=== PATIENT | male | born 1940 | race Caucasian/White ===

== ENCOUNTER 2019-08-16 06:26 | Day surgery (SDC) | payer MEDICARE, OTHER ==
[2019-08-16] MEDS ORDERED: Bupivacaine 0.5% 50 ML MDV ONE (06:37)
[2019-08-16] MEDS ORDERED: Lidocaine 1% with EPINEPHrine 1:100,000 50 ML MDV ONE (06:37)
[2019-08-16] MEDS ORDERED: ceFAZolin 2 GM in Premix Bag 1 BAG IV ONE (07:00)
[2019-08-16] MEDS ORDERED: metroNIDAZOLE/Normal Saline 500 MG in Premix Bag 1 BAG IV ONE (07:00)
[2019-08-16] MEDS ORDERED: Sodium Chloride 0.9% 1,000 ML IV SCH (07:00)
[2019-08-16] MEDS ORDERED: fentaNYL 100 MCG/2 ML SDV ONE (07:14)
[2019-08-16] MEDS ORDERED: Propofol 200 MG/20 ML SDV ONE ×2 (07:14→07:59)
[2019-08-16] MEDS ORDERED: Midazolam 1 MG/ML 2 ML SDV ONE (07:14)
[2019-08-16] MEDS ORDERED: Acetaminophen/oxyCODONE 325-5 MG Tab PO ONE (09:42)
--- NOTE | 2019-08-16 11:26 | OR ---
DATE OF PROCEDURE: 08/16/2019 SURGEON: Sampson Barajas MD PROCEDURE: Open inguinal hernia, right. COMPLICATIONS: None. ANALYSIS OR RESEARCH SAFETY INSPECTOR: None. ANESTHETIC: MAC/local. PREOPERATIVE DIAGNOSIS: Incarcerated non-strangulated inguinal hernia. POSTOPERATIVE DIAGNOSIS: Incarcerated non-strangulated inguinal hernia. RISKS: Risks, benefits, alternatives, and limitations including, but not limited to, infection, bleeding, and perforation, injury to abdominal structures were explained to the patient, and they wished to proceed. PROCEDURE IN DETAIL: The patient was placed in supine position, and on the right side, a curvilinear incision was made in a standard fashion, approximately 5 cm in size. This was then carried down with electrocautery to the external oblique aponeurosis. This was opened with the back of a 15 blade and subsequently Metzenbaum scissors. The cord structures were then freely dissected, surrounded with a [place] drain. The patient was noted to have an indirect inguinal hernia. This was freely dissected and the sac was then deflected back into the abdomen. There was also a cord lipoma associated with this that was also deflected. The cord structures were repeatedly re-verified and no abnormalities were noted. These were also protected with a [place] drain. An extra-large plug and patch system was then sutured into place without difficulty. This was approximately every 1 cm in interrupted and running sutures. The ilioinguinal nerve was identified during this process and was deflected away from any sutures. This was then irrigated. The external oblique aponeurosis was closed with 3-0 Vicryl, the subcutaneous tissues were closed with 3-0 Vicryl, skin was closed with 4-0 Vicryl and Dermabond was applied. The patient tolerated the procedure well. Sampson Barajas MD /[id number]
--- NOTE | 2019-08-16 11:32 | OR ---
DATE OF PROCEDURE: 08/16/2019 SURGEON: Sampson Barajas MD PROCEDURE: Bilateral transversus abdominis plane block. COMPLICATIONS: None. RESIDENTIAL TEAM LEADER: None. RISKS: Risks, benefits, alternatives, and limitations including, but not limited to, infection, bleeding, and injury to abdominal structures were explained to the patient, who wished to proceed. PROCEDURE IN DETAIL: The patient was placed in the supine position. The transversus plane on the right side was identified. This was injected with 80% of the solution, the other side was then injected under direct visualization. No evidence of injury or abnormalities noted. The patient tolerated the procedure well. Sampson Barajas MD /[id number]
== END 2019-08-16 10:53 | disposition home or self-care (01) ==
LOC: JP.SDS 06:26
PROVIDERS: ATTEND Surgery
DX: K40.30 Unilateral inguinal hernia, with obstruction, without gangrene, not specified as recurrent (principal); E78.5 Hyperlipidemia, unspecified; N18.3 Chronic kidney disease, stage 3 (moderate); D17.6 Benign lipomatous neoplasm of spermatic cord; K62.7 Radiation proctitis; Z79.899 Other long term (current) drug therapy; Z85.46 Personal history of malignant neoplasm of prostate; Z90.79 Acquired absence of other genital organ(s); Z92.3 Personal history of irradiation; Z87.19 Personal history of other diseases of the digestive system; Z87.891 Personal history of nicotine dependence; Z98.890 Other specified postprocedural states
CPT/HCPCS: A9270-GY; C1781; J0171; J0690; J1100; J2250; J2704; J2795; J3010; J3490; J7030; J7050

== ENCOUNTER 2019-10-30 06:42 | Day surgery (SDC) | payer MEDICARE, OTHER ==
[2019-10-30] MEDS ORDERED: Sodium Chloride 0.9% 1,000 ML IV SCH (07:15)
[2019-10-30] MEDS ORDERED: fentaNYL 100 MCG/2 ML SDV ONE (07:36)
[2019-10-30] MEDS ORDERED: Propofol 200 MG/20 ML SDV ONE (07:36)
[2019-10-30] MEDS ORDERED: Midazolam 1 MG/ML 2 ML SDV ONE (07:36)
--- NOTE | 2019-10-30 09:58 | OR ---
DATE OF PROCEDURE: 10/30/2019 SURGEON: Sampson Barajas MD PROCEDURE: Colonoscopy. FINDINGS: 1. Poor colon prep. 2. Diverticulosis, extensive, mostly concentrated in sigmoid colon. ANESTHESIA: MAC. PREOPERATIVE DIAGNOSIS: Screening colonoscopy. POSTOPERATIVE DIAGNOSIS: Screening colonoscopy. RISKS: Risks, benefits, alternatives, and limitations including, but not limited to, infection, bleeding, and perforation along with false positives and false negatives were explained to the patient and they wished to proceed. PROCEDURE IN DETAIL: The patient was placed in left lateral decubitus position. A digital rectal exam was performed without abnormality. Scope was introduced and advanced atraumatically to the ileocecal valve. A photo was taken of this. Scope was brought back to the ascending, transverse, descending colon, and retroflexed. No old or new blood. No masses. No polyps. The scope was brought back to the ascending, transverse, descending colon, and retroflexed. The diverticulosis was described as extensive with most densely concentrated in the sigmoid colon. No polyps. No masses. No old or new blood. No abnormalities on retroflexion. The patient tolerated the procedure well. Sampson Barajas MD /[id number]
== END 2019-10-30 09:35 | disposition home or self-care (01) ==
LOC: JP.SDS 06:42
PROVIDERS: ATTEND Surgery
DX: Z12.11 Encounter for screening for malignant neoplasm of colon (principal); K57.30 Diverticulosis of large intestine without perforation or abscess without bleeding; N18.9 Chronic kidney disease, unspecified
CPT/HCPCS: G0121; J2250; J2704; J3010; J7030

== ENCOUNTER 2021-01-22 06:45 | Day surgery (SDC) | payer MEDICARE, OTHER ==
[2021-01-22] MEDS ORDERED: fentaNYL 100 MCG/2 ML SDV ONE (07:13)
[2021-01-22] MEDS ORDERED: Propofol 200 MG/20 ML SDV ONE ×2 (07:13→07:56)
[2021-01-22] MEDS ORDERED: Sodium Chloride 0.9% 1,000 ML IV SCH (07:30)
--- NOTE | 2021-01-22 14:18 | OR ---
DATE OF PROCEDURE: 01/22/2021 SURGEON: Sampson Barajas MD PROCEDURES: 1. Esophagogastroduodenoscopy. 2. Colonoscopy. FINDINGS: 1. Ulceration in the gastric antrum. 2. Inflammation at the GE junction concerning for reflux disease (biopsied in all 4 quadrants using cold biopsy forceps). 3. Diverticulosis, mild, diffuse throughout colon. 4. Poor colon prep. COMPLICATIONS: None. ASSET PROTECTION PROFESSIONAL: None. PREOPERATIVE DIAGNOSIS: History of gastrointestinal bleeding. POSTOPERATIVE DIAGNOSIS: History of gastrointestinal bleeding. RISKS: Risks, benefits, alternatives, and limitations including, but not limited to, infection, bleeding, perforation, false positives, false negatives were explained to the patient and wished to proceed. PROCEDURE IN DETAIL: The patient was placed in left lateral decubitus position. The EGD scope was introduced and advanced atraumatically to the second part of the duodenum. No evidence of duodenitis or ulceration. Within the gastric antrum itself, there were two areas of ulceration which appeared to be recently bleeding, but not actively bleeding. This was biopsied in proximity for H pylori evaluation. The patient also had a small hiatal hernia. Also had inflammation at the GE junction concerning for reflux disease. This was biopsied in all 4 quadrants using cold biopsy forceps. The air was removed from the stomach. The esophagus was inspected without abnormality. A digital rectal exam was performed next. Scope was introduced and advanced atraumatically to the ileocecal valve. A photo was taken. The scope was brought back to the ascending, transverse, descending colon and retroflexed. The prep was poor with less than 80% luminal surface could be seen. Solid and liquid stool was remaining. Suction and irrigation techniques were used to optimize this. Diverticulosis was described as mild to moderate associated with a tortuous sigmoid colon and most densely concentrated in a classic pattern in the sigmoid colon. No abnormalities on retroflexion. The patient tolerated the procedure well. Sampson Barajas MD /[id number]
== END 2021-01-22 10:15 | disposition home or self-care (01) ==
LOC: JP.SDS 06:45
PROVIDERS: ATTEND Surgery
DX: K57.30 Diverticulosis of large intestine without perforation or abscess without bleeding (principal); K25.9 Gastric ulcer, unspecified as acute or chronic, without hemorrhage or perforation; K20.90 Esophagitis, unspecified without bleeding; K44.9 Diaphragmatic hernia without obstruction or gangrene; K31.89 Other diseases of stomach and duodenum; N18.9 Chronic kidney disease, unspecified
CPT/HCPCS: 43239; 45378; 88305; J2704; J3010; J7030